=== PATIENT | male | born 1995 | race Caucasian/White ===

== ENCOUNTER 2016-08-22 17:14 | Emergency (ER) | payer BC, OTHER ==
[~2016-08-22] VITALS: Ht 165.1 cm; Wt 58.5 kg
[~2016-08-22 17:14] MED LIST: DIAZ-165 PO; DLN/100 PO; DZPG25 PR; ONFI PO; TOPI25TA99 PO
[2016-08-22 17:19] VITALS: TEMP 36.8; Ht 165.1 cm; Wt 58.5 kg
[2016-08-22] MEDS ORDERED: LIDOCAINE/EPINEPH/TETRACAINE 1 EA SYR ONE (17:45)
[2016-08-22] MEDS ORDERED: LIDOCAINE/EPINEPH/TETRACAINE 1 EA SYR EXT STA (17:45)
[2016-08-22] MEDS ORDERED: ONFI PO ×2 (18:02)
[2016-08-22] MEDS ORDERED: XYLOCAINE 1%/SOD BICARB 20 ML VIAL INFIL ONE (18:27)
[2016-08-22 18:42] VITALS: BP 108/60; PULSE 89; O2SAT 99
--- NOTE | 2016-08-23 19:50 | EMERGENCY ROOM VISIT NOTE ---
ED Visit Note First contact with patient: 17:34 Chief Complaint: Chin laceration. History of Present Illness: Mr. Castillo is a 21-year-old white male who is brought into the ED via wheelchair accompanied by his parents with a chin laceration. Mother reports patient has severe epilepsy and autism. Approximately one hour ago he had a seizure and fell to the ground striking his chin on a piece of metal close cell changer. She does not feel he struck his head. He had his seizure which was short-lived and a short postictal period and parents were able to bring him to the ED for further evaluation. He had no additional seizures or vomiting on be brought in the hospital. Currently patient reports report patient is currently at his baseline neurological status and does not feel he suffers from any head injury. I did offer to do a head and facial CT and parents refused. I did offer to do a baseline Dilantin level and parents refused. Review of Systems: As noted above in history of present illness. 8 body systems were reviewed and found to be negative as noted above. Past Medical History: As previously noted, acne, status post vagus nerve implantation and removal. Current Medications: Diazepam, Dilantin, Topamax. Allergies to Medications: Parents denied. Social History: Patient is not employed and lives with his parents; they deny tobacco and alcohol use. Tetanus Immunization Status: Parents report up-to-date. Physical Examination: Vital Signs: Date Time Temp Pulse Resp B/P Pulse Ox O2 Delivery O2 Flow Rate FiO2 08/22/16 18:42 89 108/60 99 08/22/16 17:19 36.8 101 18 118/79 96 Room Air GENERAL: 21-year-old male in mild distress due to pain, nontoxic-appearing, afebrile and hemodynamically stable. NEUROLOGICAL: Awake, alert and oriented to person and parents voice. Following parents commands. He does communicate well with his parents concerning food. He has multiple spastic movements of his face and extremities; parents report this is normal. SKIN: Warm, dry and pink. Face: 3.1 cm full-thickness laceration just inferior to the right commissure of the lips. No active bleeding. HEENT: Skull: Atraumatic and normocephalic. Face: Laceration as noted above. No facial bony tenderness, swelling or ecchymosis. PERRLA. No malocclusion. No intraoral trauma. Airway patent. ED Course: Patient is assessed as noted above. Wound Repair: Complexity: Basic Verbal consent was obtained after the risks and benefits were explained. LET was placed on patient's laceration. The skin was prepped with betadine and a sterile field set. The wound was explored for foreign bodies and none found. Copious irrigation was performed using sterile saline. As I started to suture the patient he apparently was in pain so I anesthetized with 2.1 ml buffered 1% lidocaine. With direct pressure the bleeding subsided. Debridement was not performed. The wound edges were approximated using 6-0 Ethilon with 6 simple interrupted sutures. Hemostasis and excellent approximation was achieved. Antibacterial ointment and a sterile dressing applied. No complications and the patient tolerated the procedure well. Patient was educated about tonight's findings and instructed on his treatment plan; he verbalizes understanding and agreement with this plan. Clinical Impression: Laceration of the face. Disposition: Patient discharged home in stable condition accompanied by his parents. Plan: Comfort measures, wound care, signs of infection and signs of head injury were discussed with the patient's parents Parents were encouraged to have their son follow-up with PCP or return to the ED for signs of infection and/or suture removal in 5-6 days. Parents were encouraged to have their son return to the ED for any additional seizures, signs of head injury or any new/concerning symptoms.
== END 2016-08-22 18:47 | disposition home or self-care (01) ==
LOC: C.EDB 17:16 → C.EDD 18:47
DX: S01.81XA Laceration without foreign body of other part of head, initial encounter (principal); W22.8XXA Striking against or struck by other objects, initial encounter; G40.909 Epilepsy, unspecified, not intractable, without status epilepticus; F84.0 Autistic disorder; Z79.899 Other long term (current) drug therapy

== ENCOUNTER → 2017-01-04 | Outpatient (CLI) | payer BC, OTHER ==
--- NOTE | 2017-01-04 11:30 | DIAGNOSTIC IMAGING REPORT ---
CHEST 2 VIEWS ROUTINE CLINICAL HISTORY: COUGH COMPARISON STUDY: No previous studies for comparison. FINDINGS: The heart is normal in size. There is a 33 mm nodular opacity within the left midlung zone laterally. Given the age of the patient and clinical symptoms, this is likely infectious/inflammatory. Short-term radiographic follow-up subsequent to antibiotic therapy is recommended. There are no pleural effusions.[ IMPRESSION: 33 mm left midlung zone opacity, likely infectious/inflammatory given the age of the patient and clinical symptoms. Short-term radiographic follow-up subsequent to antibiotic therapy is recommended Electronically signed by: Oskar Joe M.D. 01/04/2017 11:29 AM Dictated Date/Time: 01/04/2017 11:27 AM
== END | disposition home or self-care (01) ==
LOC: C.RADBC 10:59
PROVIDERS: ATTEND Family Medicine
DX: R05 Cough (principal); R91.8 Other nonspecific abnormal finding of lung field

== ENCOUNTER → 2017-01-18 | Outpatient (CLI) | payer BC, OTHER ==
--- NOTE | 2017-01-18 12:54 | DIAGNOSTIC IMAGING REPORT ---
CHEST 2 VIEWS ROUTINE CLINICAL HISTORY: 21 years-old Male presenting with J18.9 Community acquired pneumonia. TECHNIQUE: PA and lateral views of the chest were obtained. COMPARISON: 01/04/2017. FINDINGS: Cardiomediastinal silhouette normal. Significant interval decrease in focal opacity along the major fissure in the left upper lobe peripherally. Minimal opacity remains. No new focal opacity or no pleural effusion or pneumothorax. Osseous structures normal. Upper abdomen normal. IMPRESSION: 1. Significant interval reduction in peripheral left midlung opacity, consistent with expected interval evolution posttreatment. Electronically signed by: Robert James M.D. 01/18/2017 12:52 PM Dictated Date/Time: 01/18/2017 12:51 PM
== END | disposition home or self-care (01) ==
LOC: C.RADBC 12:38
PROVIDERS: ATTEND Family Medicine
DX: J18.9 Pneumonia, unspecified organism (principal)